=== PATIENT | female | born 1960 | race Asian ===

== ENCOUNTER 2018-03-04 07:36 | Outpatient (CLI) | payer OTHER ==
[2018-03-04 07:57] LABS: BASOPHILS # (AUTO) 0.1 10^3/uL (0.0-0.1); EOSINOPHILS # (AUTO) 0.2 10^3/uL (0.0-0.7); EOSINOPHILS % (AUTO) 2.8 %; HGB - HEMOGLOBIN 14.1 g/dL (12.0-16.0); LYMPHOCYTES # (AUTO) 2.3 10^3/uL (1.5-3.5); LYMPHOCYTES % (AUTO) 35.6 %; MEAN CORPUSCULAR HEMOGLOBIN 27.2 pg (27.0-31.0); MEAN CORPUSCULAR HGB CONC 33.4 g/dL (32.0-36.0); MEAN CORPUSCULAR VOLUME 81.6 fL (81.0-99.0); MEAN PLATELET VOLUME 6.2 fL (7.9-10.8); MONOCYTES # (AUTO) 0.5 10^3/uL (0.0-1.0); MONOCYTES % (AUTO) 6.9 %; NEUTROPHILS # (AUTO) 3.5 10^3/uL (1.5-6.6); NEUTROPHILS % (AUTO) 53.7 %; PLT - PLATELET COUNT 327 10^3/uL (130-450); RED BLOOD COUNT 5.16 10^6/uL (4.20-5.40); RED CELL DISTRIBUTION WIDTH 13.1 % (12.0-15.0); WHITE BLOOD COUNT 6.5 x10^3/uL (4.8-10.8)
[2018-03-04 08:14] LABS: ALBUMIN 4.4 g/dL (3.2-5.5); ALBUMIN/GLOBULIN RATIO 1.5 (1.0-2.2); ALKALINE PHOSPHATASE 81 IU/L (42-121); ALT ALANINE AMINOTRANSFERASE 14 IU/L (10-60); AST ASPARTATE AMINOTRANSFERASE 20 IU/L (10-42); BUN - BLOOD UREA NITROGEN 17 mg/dL (6-20); CALCIUM 9.3 mg/dL (8.5-10.3); CARBON DIOXIDE - CO2 28 mmol/L (21-32); CHLORIDE 100 mmol/L (101-111); CHOL/HDL RATIO 3.3 (<4.4); CHOLESTEROL 205 mg/dL; CREATININE 0.8 mg/dL (0.4-1.0); GFR - MDRD 74 (>89); GLUCOSE 95 mg/dL (70-100); HDL CHOLESTEROL 63 mg/dL; LDL CHOLESTEROL,CALCULATED 127 mg/dL; SODIUM 136 mmol/L (135-145); TOTAL PROTEIN 7.3 g/dL (6.7-8.2); VLDL CHOLESTEROL 15 mg/dL
== END 2018-03-04 07:37 | disposition home or self-care (01) ==
LOC: LAB 07:36
PROVIDERS: ATTEND Nurse Practitioner Primary Care
DX: Z78.0 Asymptomatic menopausal state (principal); D05.12 Intraductal carcinoma in situ of left breast; Z13.29 Encounter for screening for other suspected endocrine disorder; Z13.6 Encounter for screening for cardiovascular disorders
CPT/HCPCS: 36415; 80053; 80061; 83721; 84443; 85025

== ENCOUNTER 2020-05-05 10:57 | Outpatient (CLI) | payer BC, OTHER ==
--- NOTE | 2020-05-06 11:39 | Mammography Report ---
UNILATERAL RIGHT DIGITAL DIAGNOSTIC MAMMOGRAM 3D/2D: 05/05/2020 CLINICAL: Patient returns today to evaluate a density in the right breast. Comparison is made to exams dated: 04/13/2020 mammogram, 08/18/2019 mammogram - [facility], 01/16 mammogram - [facility], 01/28/2018 mammogram, 01/14/2018 mammogram, and 11/22/2015 ma mmogram - [facility]. The tissue of right breast is heterogeneously dense. This ma y lower the sensitivity of mammography. The possible architectural distortion in the right breast middle depth superior region seen on the me diolateral oblique view only is not reproduced and presumably represented superimposed breast tissue. There also is a 6 mm oval asymmetry with a spiculated and indistinct margin in the right breast middl e depth superior region seen on the mediolateral oblique view only. Finding is seen only on lateral tomography. No other significant masses or calcifications are seen in the breast. IMPRESSION: INCOMPLETE: NEEDS ADDITIONAL IMAGING EVALUATION An ultrasound is recommended to confirm resolution of the possible architectural distortion in the ri ght breast middle depth superior region seen on the mediolateral oblique view only. The 6 mm oval asymmetry in the right breast middle depth superior region seen on the mediolateral obl ique view only is indeterminate. An ultrasound is recommended. This was performed immediately follo wing this exam. This exam was interpreted at Station ID: [id number]. NOTE: For mammograms, a report in lay terms will be sent to the patient. Approximately 15% of breast malignancies will not be visualized mammographically. In the management of a palpable breast mass, a negative mammogram must not discourage biopsy of a clinically suspicious lesion. Electronically Signed By: Brigid cleary/:05/05/2020 12:29:11 copy to: Zuleyma Grimes copy to: CHRIS ROSALES copy to: ARSENIO WOODARD BI-RADS Category 0: Incomplete 3340F PARENCHYMAL PATTERN: (D) - The breast(s) demonstrate(s) heterogeneously dense fibroglandular parenchy ma. BI-RADS CATEGORY: (0) - 0 Ultrasound [id number] Immediate follow-up LATERALITY: (B)
--- NOTE | 2020-05-06 11:39 | Ultrasound Report ---
LIMITED ULTRASOUND OF RIGHT BREAST: 05/05/2020 CLINICAL: Patient returns today to evaluate a focal asymmetry in the right breast. Comparison is made to exams dated: 05/05/2020 mammogram - [facility], 04/13/2020 [facility], 08/18/2019 mammogram - [facility], 01/16/2019 mammogram - [facility], 03/13 specimen, and 03/13/2018 localization - [facility]. Color flow and real-time ultrasound of the right breast 10-2 o'clock region were performed. Luis sca le images of the real-time examination were reviewed. No significant abnormalities were seen sonographically in the right breast. Specifically, no finding to correspond to either mammographic finding- the 12:00 architectural distortion, or 6 mm asymmetry in the upper breast on ML view. IMPRESSION: PROBABLY BENIGN There is no sonographic correlate to the patient's mammographic abnormalities. A follow-up right mammogram and possible ultrasound in 6 months is recommended to demonstrate stabil ity. Findings and recommendations were conveyed to the patient at time of exam. This exam was interpreted at Station ID: [id number]. Electronically Signed By: Brigid cleary/:05/05/2020 12:33:18 copy to: Zuleyma Grimes copy to: CHRIS ROSALES copy to: ARSENIO YATES Ultrasound BI-RADS: 3 Probably benign BI-RADS CATEGORY: (3) - 3 Mammo and US [id number] 6 month follow-up LATERALITY: (R)
== END 2020-05-05 10:58 | disposition home or self-care (01) ==
LOC: DI 10:57
PROVIDERS: ATTEND Surgery
DX: D05.12 Intraductal carcinoma in situ of left breast (principal); R92.8 Other abnormal and inconclusive findings on diagnostic imaging of breast
CPT/HCPCS: 76642

== ENCOUNTER 2020-08-25 12:50 | Outpatient (CLI) | payer BC, OTHER ==
--- NOTE | 2020-08-25 15:15 | DEXA Report ---
PROCEDURE: Dexa Spine and/or Hip INDICATIONS: POSTMENOPAUSAL TECHNIQUE: Dual energy x-ray absorptiometry (DXA) was performed on a [employer]. Regions measur ed are the AP Spine, femoral neck, and if needed forearm. COMPARISON: 06/04/2018. FINDINGS: Lumbar Spine: Bone Mineral Density 1.013 g/cm/cm,T score -1.4, osteopenia Left Hip: Bone Mineral Density 0.850 g/cm/cm,T score -1.3 , osteopenia Left Femoral Neck: Bone Mineral Density 0.754 g/cm/cm, T score -2.0, osteopenia (T score greater or equal to -1.0: NORMAL) (T score from -1.1 to -2.4: OSTEOPENIA) (T score less than or equal to -2.5 to: OSTEOPOROSIS) Impression: Osteopenia. Bone mineral density has decreased by 4% in the interval since prior exam obt ained 06/04/2018. Patients with diagnosis of osteoporosis or osteopenia should have regular bone mineral density assess ment. For those eligible for Medicare, routine testing is allowed once every 2 years. Testing frequ ency can be increased for patients who have rapidly progressing disease or for those who are receivin g medical therapy to restore bone mass. Reviewed by: Francoise Alonzo MD, PhD on 08/25/2020 3:13 PM PST Approved by: Francoise Alonzo MD, PhD on 08/25/2020 3:13 PM PST Station ID: [id number]
== END 2020-08-25 12:51 | disposition home or self-care (01) ==
LOC: DI 12:50
PROVIDERS: ATTEND Internal Medicine Hematology & Oncology
DX: M85.89 Other specified disorders of bone density and structure, multiple sites (principal); Z78.0 Asymptomatic menopausal state
CPT/HCPCS: 77080

== ENCOUNTER 2020-11-22 09:15 | Outpatient (CLI) | payer BC, OTHER ==
--- NOTE | 2020-11-23 08:28 | Mammography Report ---
UNILATERAL RIGHT DIGITAL DIAGNOSTIC MAMMOGRAM 3D/2D: 11/22/2020 CLINICAL: Patient returns for a 6 month follow up of the right breast. Comparison is made to exams dated: 05/05/2020 ultrasound, 05/05/2020 mammogram - [facility], 04/13/2020 mammogram, 08/18/2019 mammogram - [facility], and 01/16/2019 mammogram - [facility]. The tissue of right breast is heterogeneously dense. This may lower the sensit ivity of mammography. The previously seen asymmetry and possible architectural distortion without sonographic correlate in the right breast is no longer visualized, presumably secondary to superimposed fibroglandular breast tissue on the prior exams. No significant masses, calcifications, or other findings are seen in the breast. IMPRESSION: NEGATIVE There is no mammographic evidence of malignancy. Return to annual mammogram screening schedule is rec ommended. This exam was interpreted at Station ID: [id number]. NOTE: For mammograms, a report in lay terms will be sent to the patient. Approximately 15% of breast malignancies will not be visualized mammographically. In the management of a palpable breast mass, a negative mammogram must not discourage biopsy of a clinically suspicious lesion. Electronically Signed By: Joaquín salguero/donna:11/22/2020 10:53:50 copy to: Zuleyma Grimes copy to: CHRIS ROSALES copy to: ARSENIO WOODARD BI-RADS Category 1: Negative 3341F PARENCHYMAL PATTERN: (D) - The breast(s) demonstrate(s) heterogeneously dense fibroglandular yobani olea. BI-RADS CATEGORY: (1) - 1 Mammogram [id number] return to screening LATERALITY: (B)
== END 2020-11-22 09:16 | disposition home or self-care (01) ==
LOC: DI 09:15
PROVIDERS: ATTEND Physician Assistant
DX: Z12.39 Encounter for other screening for malignant neoplasm of breast (principal); Z08 Encounter for follow-up examination after completed treatment for malignant neoplasm; Z85.3 Personal history of malignant neoplasm of breast

== ENCOUNTER 2021-09-14 13:02 | Outpatient (CLI) | payer BC, OTHER ==
--- NOTE | 2021-09-16 08:56 | Mammography Report ---
BILATERAL DIGITAL SCREENING MAMMOGRAM 3D/2D: 09/14/2021 CLINICAL: Routine screening. Personal history of left breast cancer. Comparison is made to exams dated: 11/22/2020 mammogram, 05/05/2020 ultrasound, 05/05/2020 mammogram - [facility], 04/13/2020 mammogram, 08/18/2019 mammogram - [facility], and 01/17/20 mammogram - [facility]. The tissue of both breasts is heterogeneously dense. This may lower the sensitivity of mammography. No significant masses, calcifications, or other findings are seen in either breast. There has been no significant interval change. IMPRESSION: NEGATIVE There is no mammographic evidence of malignancy. A 1 year screening mammogram is recommended. This exam was interpreted at Station ID: [id number]. NOTE: For mammograms, a report in lay terms will be sent to the patient. Approximately 15% of breast malignancies will not be visualized mammographically. In the management of a palpable breast mass, a negative mammogram must not discourage biopsy of a clinically suspicious lesion. Electronically Signed By: Andrea Ibarra M.D., jr/donna:09/14/2021 14:48:36 copy to: Zuleyma Grimes copy to: CHRIS ROSALES copy to: ARSENIO WOODARD BI-RADS Category 1: Negative 3341F PARENCHYMAL PATTERN: (D) - The breast(s) demonstrate(s) heterogeneously dense fibroglandular parenchy ma. BI-RADS CATEGORY: (1) - 1 RECOMMENDATION: (ANNUAL) - Recommend routine annual screening mammography. [id number] 1 year screening LATERALITY: (B)
== END 2021-09-14 13:03 | disposition home or self-care (01) ==
LOC: DI 13:02
DX: Z12.31 Encounter for screening mammogram for malignant neoplasm of breast (principal); Z85.3 Personal history of malignant neoplasm of breast

== ENCOUNTER 2022-02-01 14:15 | Outpatient (CLI) | payer BC, OTHER ==
--- NOTE | 2022-02-01 16:22 | DEXA Report ---
PROCEDURE: Dexa Spine and/or Hip INDICATIONS: OSTEOPOROSIS TECHNIQUE: Dual energy x-ray absorptiometry (DXA) was performed on a [employer] System. Regions measur ed are the AP Spine, femoral neck, and if needed forearm. COMPARISON: DEXA 08/25/2020 FINDINGS: Lumbar Spine: Bone Mineral Density 1.044 g/cm/cm,T score -1.1, compared to -1.4 Left Hip: Bone Mineral Density 0.865 g/cm/cm,T score -1.1, compared to -1.3 Left Femoral Neck: Bone Mineral Density 0.788 g/cm/cm, T score -1.8, compared to -2.0 (T score greater or equal to -1.0: NORMAL) (T score from -1.1 to -2.4: OSTEOPENIA) (T score less than or equal to -2.5 to: OSTEOPOROSIS) Impression: Moderate osteopenia within the left femoral neck although mildly improved compared to prior exam. Min imal osteopenia within the lumbar spine and left hip, also mildly improved. Patients with diagnosis of osteoporosis or osteopenia should have regular bone mineral density assess ment. For those eligible for Medicare, routine testing is allowed once every 2 years. Testing frequ ency can be increased for patients who have rapidly progressing disease or for those who are receivin g medical therapy to restore bone mass. Reviewed by: Shahla Goodrich MD on 02/01/2022 4:21 PM PDT Approved by: Shahla Goodrich MD on 02/01/2022 4:21 PM PDT Station ID: [id number]
== END 2022-02-01 14:16 | disposition home or self-care (01) ==
LOC: DI 14:15
PROVIDERS: ATTEND Internal Medicine Hematology & Oncology
DX: Z78.0 Asymptomatic menopausal state (principal); M85.89 Other specified disorders of bone density and structure, multiple sites

== ENCOUNTER 2022-09-07 11:16 | Outpatient (CLI) | payer BC, OTHER ==
--- NOTE | 2022-09-08 09:55 | Mammography Report ---
BILATERAL DIGITAL SCREENING MAMMOGRAM 3D/2D: 09/07/2022 CLINICAL: Routine screening. Personal history of left breast cancer. Comparison is made to exams dated: 09/14/2021 mammogram, 11/22/2020 mammogram, 05/05/2020 mammogram - [facility], 04/13/2020 mammogram, 08/18/2019 mammogram - [facility], and 01/16/2019 mammogram - [facility]. Both breasts are heterogeneously dense, which may obscure small masses (category c / 51-75% glandular tissue). No significant masses, calcifications, or other findings are seen in either breast. There has been no significant interval change. IMPRESSION: NEGATIVE There is no mammographic evidence of malignancy. A 1 year screening mammogram is recommended. This exam was interpreted at Station ID: [id number]. NOTE: For mammograms, a report in lay terms will be sent to the patient. Approximately 15% of breast malignancies will not be visualized mammographically. In the management of a palpable breast mass, a negative mammogram must not discourage biopsy of a clinically suspicious lesion. Electronically Signed By: Rafiq Taylor M.D. [facility]:09/07/2022 16:42:53 copy to: Zuleyma Grimes copy to: CHRIS ROSALES copy to: ARSENIO WOODARD BI-RADS Category 1: Negative 3341F PARENCHYMAL PATTERN: (D) - The breast(s) demonstrate(s) heterogeneously dense fibroglandular parcindiy ma. BI-RADS CATEGORY: (1) - 1 RECOMMENDATION: (ANNUAL) - Recommend routine annual screening mammography. [id number] 1 year screening LATERALITY: (B)
== END 2022-09-07 11:17 | disposition home or self-care (01) ==
LOC: DI 11:16
PROVIDERS: ATTEND Physician Assistant
DX: Z12.31 Encounter for screening mammogram for malignant neoplasm of breast (principal); Z85.3 Personal history of malignant neoplasm of breast

== ENCOUNTER 2023-09-06 11:40 | Outpatient (CLI) | payer BC, OTHER ==
--- NOTE | 2023-09-07 13:14 | Mammography Report ---
BILATERAL DIGITAL SCREENING MAMMOGRAM 3D/2D: 09/06/2023 CLINICAL: Routine screening. History of left breast cancer. Comparison is made to exams dated: 09/07/2022 mammogram, 09/14/2021 mammogram, 11/22/2020 mammogram, mammogram - [facility], 04/13/2020 mammogram, and 08/18/2019 mammogram - [facility]. Both breasts are heterogeneously dense, which may obscure small masses (category c / 51-75% glandular tissue). No significant masses, calcifications, or other findings are seen in either breast. There has been no significant interval change. IMPRESSION: NEGATIVE There is no mammographic evidence of malignancy. A 1 year screening mammogram is recommended. This exam was interpreted at Station ID: [id number]. NOTE: For mammograms, a report in lay terms will be sent to the patient. Approximately 15% of breast malignancies will not be visualized mammographically. In the management of a palpable breast mass, a negative mammogram must not discourage biopsy of a clinically suspicious lesion. Electronically Signed By: Joshua umanzor/donna:09/06/2023 16:18:08 copy to: Zuleyma Grimes copy to: CHRIS ROSALES copy to: ARSENIO YATES letter sent: No_Letter ACR BI-RADS Category 1: Negative 3341F PARENCHYMAL PATTERN: (D) - The breast(s) demonstrate(s) heterogeneously dense fibroglandular yobani olea. BI-RADS CATEGORY: (1) - 1 Mammogram [id number] 1 year screening LATERALITY: (B)
== END 2023-09-06 11:41 | disposition home or self-care (01) ==
LOC: DI 11:40
PROVIDERS: ATTEND Internal Medicine Hematology & Oncology
DX: Z12.31 Encounter for screening mammogram for malignant neoplasm of breast (principal); R92.333 Mammographic heterogeneous density, bilateral breasts; Z85.3 Personal history of malignant neoplasm of breast